=== PATIENT | male | born 1975 | race Caucasian/White ===

== ENCOUNTER 2021-09-01 09:53 | Emergency (ER) | payer BC, SELFPAY ==
[~2021-09-01] VITALS: Ht 188 cm; Wt 109.0 kg
[2021-09-01] MEDS ORDERED: IBUP200C25 PO (10:02)
[2021-09-01 12:33] VITALS: BP 139/82
== END 2021-09-01 12:40 | disposition home or self-care (01) ==
LOC: M ED 09:53
DX: N43.3 Hydrocele, unspecified (principal); F17.200 Nicotine dependence, unspecified, uncomplicated